=== PATIENT | male | born 2000 | race Caucasian/White ===

== ENCOUNTER 2023-07-03 11:38 | Emergency (ER) | payer MEDICAID, OTHER ==
[~2023-07-03] VITALS: Ht 172.7 cm; Wt 102.0 kg
[~2023-07-03 11:38] MED LIST: BO1 TP
[2023-07-03 11:45] VITALS: O2SAT 100
[2023-07-03 12:24] LABS: BASOPHILS % 1.3 % (0.0-2.0); EOSINOPHILS % 0.3 % (0.0-5.0); HEMATOCRIT. 45.9 % (42.0-52.0); HEMOGLOBIN. 15.8 g/dL (14.0-18.0); LYMPHOCYTES % 24.5 % (20.0-50.0); MEAN CORPUSCULAR HEMOGLOBIN 30.8 pg (28.0-32.0); MEAN CORPUSCULAR HGB CONC 34.5 g/dL (31.0-37.0); MEAN CORPUSCULAR VOLUME 89.5 fL (80.0-94.0); MEAN PLATELET VOLUME 7.7 fl (7.4-10.4); MONOCYTES % 7.6 % (2.0-8.0); NEUTROPHILS % 66.3 % (40.0-76.0); PLATELET 262 x1000/uL (130-400); RED BLOOD CELL COUNT 5.14 mill/uL (4.7-6.1); RED CELL DISTRIBUTION WIDTH 14.3 % (11.6-14.6); WHITE BLOOD COUNT 7.3 x1000/uL (4.5-11.0)
[2023-07-03 12:37] LABS: ALBUMIN 4.4 g/dL (3.4-5.0); CARBON DIOXIDE 24 mEq/L (21-32); CHLORIDE 108 mEq/L (98-107); GLUCOSE 117 mg/dL (70-105); INDEX HEMOLYSI 1 (1-3); INDEX ICTERIC 1 (1-4); INDEX LIPEMIC 1 (1-3); POTASSIUM 3.8 mEq/L (3.5-5.1); SODIUM 137 mEq/L (136-145); UREA NITROGEN BLOOD 14 mg/dL (7-21)
[2023-07-03 12:42] LABS: ALANINE AMINOTRANSFERASE 43 IU/L (13-61); ASPARTATE AMINOTRANSFERASE 25 IU/L (15-37); BILIRUBIN TOTAL 1.2 mg/dL (0.1-1.0); CREATININE 0.8 mg/dL (0.6-1.3); PROTEIN TOTAL 8.2 g/dL (6.0-8.3)
[2023-07-03 16:39] LABS: CLARITY URINE CLEAR (CLEAR); COLOR URINE YELLOW (YELLOW); GLUCOSE URINE NEGATIVE (NEGATIVE); KETONES URINE NEGATIVE (NEGATIVE); LEUKOCYTE ESTERASE URINE NEGATIVE (NEGATIVE); NITRITE URINE NEGATIVE (NEGATIVE); OCCULT BLOOD URINE NEGATIVE (NEGATIVE); PH URINE 7.5 (4.5-8.0); PROTEIN URINE NEGATIVE (NEGATIVE); SPECIFIC GRAVITY URINE 1.008 (1.005-1.030); UROBILINOGEN URINE 0.2 E.U./dL (0.2-1.0)
[2023-07-03 16:39] LABS: NT PRO B-TYPE NATRIURETIC PEP 22 pg/mL (5-125); TROPONIN I HIGH SENSITIVITY 39 ng/L (<78)
[2023-07-03 17:26] VITALS: BP 100/76; PULSE 76; RESP 18; TEMP 97.5
== END 2023-07-03 17:28 | disposition home or self-care (01) ==
LOC: ER 12:16
DX: R06.02 Shortness of breath (principal)
CPT/HCPCS: 36415; 71045; 80053; 81003; 83880; 84484; 85025; 93005; 99285